=== PATIENT | female | born 1990 | race Caucasian/White ===

== ENCOUNTER → 2024-10-27 10:27 | Outpatient (REF) | payer BC, SELFPAY | LOC: PNTC 10:27 | PROVIDERS: ATTENDING PHYSICIAN Obstetrics & Gynecology | DX: O99.210 Obesity complicating pregnancy, unspecified trimester (principal); O09.529 Supervision of elderly multigravida, unspecified trimester; O34.219 Maternal care for unspecified type scar from previous cesarean delivery; Z87.59 Personal history of other complications of pregnancy, childbirth and the puerperium | CPT/HCPCS: 76801; 76813 ==

== ENCOUNTER → 2024-12-22 08:37 | Outpatient (REF) | payer BC, SELFPAY | LOC: PNTC 08:37 | PROVIDERS: ATTENDING PHYSICIAN Obstetrics & Gynecology | DX: O09.519 Supervision of elderly primigravida, unspecified trimester (principal); O09.529 Supervision of elderly multigravida, unspecified trimester; O14.90 Unspecified pre-eclampsia, unspecified trimester; O34.211 Maternal care for low transverse scar from previous cesarean delivery; O99.210 Obesity complicating pregnancy, unspecified trimester | CPT/HCPCS: 76811; 76817 ==

== ENCOUNTER → 2025-03-18 09:50 | Outpatient (REF) | payer BC, SELFPAY | LOC: PNTC 09:50 | PROVIDERS: ATTENDING PHYSICIAN Student in an Organized Health Care Education/Training Program | DX: O14.00 Mild to moderate pre-eclampsia, unspecified trimester (principal) | CPT/HCPCS: 59025; 76818 ==

== ENCOUNTER → 2025-03-25 13:57 | Outpatient (REF) | payer BC, SELFPAY | LOC: PNTC 13:57 | PROVIDERS: ATTENDING PHYSICIAN Student in an Organized Health Care Education/Training Program | DX: O13.9 Gestational [pregnancy-induced] hypertension without significant proteinuria, unspecified trimester (principal) | CPT/HCPCS: 59025; 76815 ==

== ENCOUNTER → 2025-04-01 09:21 | Outpatient (REF) | payer BC, SELFPAY | LOC: PNTC 09:21 | PROVIDERS: ATTENDING PHYSICIAN Student in an Organized Health Care Education/Training Program | DX: O16.9 Unspecified maternal hypertension, unspecified trimester (principal) | CPT/HCPCS: 59025; 76815 ==

== ENCOUNTER → 2025-04-08 09:32 | Outpatient (REF) | payer BC, SELFPAY | LOC: PNTC 09:32 | PROVIDERS: ATTENDING PHYSICIAN Student in an Organized Health Care Education/Training Program | DX: Z01.810 Encounter for preprocedural cardiovascular examination (principal) | CPT/HCPCS: 59025; 76815 ==

== ENCOUNTER 2025-04-15 10:51 | Observation (INO) | payer BC, SELFPAY ==
[2025-04-15] MEDS: TYLENOL 1000 MG PO (11:02)
[2025-04-15 11:40] LABS: AST (SGOT) 27 U/L (14-36); Albumin 3.6 g/dl (3.5-5.0); Alkaline Phosphatase 143 U/L (38-126); Blood Urea Nitrogen 8 mg/dl (7-17); Calcium 9.4 mg/dl (8.4-10.2); Carbon Dioxide 18 mmol/L (22-30); Chloride 108 mmol/L (98-107); Glucose 172 mg/dl (70-99); Potassium 4.2 mmol/L (3.5-5.1); Sodium 134 mmol/L (135-145); Total Protein 6.5 g/dl (6.3-8.2); eGFR > 60.00
[2025-04-15 11:42] LABS: Urine Character Clear (Clear)
[2025-04-15 11:43] LABS: Hematocrit 33.0 % (37.0-47.0); Hemoglobin 10.3 g/dL (12.0-16.0); Mean Corp Hgb Conc. 31.2 g/dL (33.0-37.0); Mean Corpuscular Volume 63.8 fL (81.0-99.0); Red Cell Dist. Width 16.4 % (11.5-14.5)
[2025-04-15 11:52] LABS: ALT (SGPT) < 30 U/L (0-35)
[2025-04-15 11:53] LABS: Urine Squamous Cell >30 /LPF (Few); Urine Urothelial Cell 0-2 /LPF (FEW)
[2025-04-15 12:05] VITALS: BP 148/84; BMI 34.6
[2025-04-15 13:04] VITALS: BP 147/83; BMI 34.6
[2025-04-15 15:29] LABS: Hematocrit 33.1 % (37.0-47.0); Hemoglobin 10.4 g/dL (12.0-16.0); Mean Corp Hgb Conc. 31.4 g/dL (33.0-37.0); Mean Corpuscular Volume 63.7 fL (81.0-99.0); Nucleated Red Blood Cells % 0.3 %; Platelet Count 293 10^3/uL (130-400); Red Cell Dist. Width 16.6 % (11.5-14.5)
[2025-04-15] MEDS: AMOXIL 500 MG PO (18:05)
[2025-04-15] MEDS: TUMS CHEWABLE TABLET 400 MG PO (21:40)
[2025-04-16] MEDS: AMOXIL 500 MG PO (05:55)
[2025-04-16] MEDS: ZITHROMAX 250 MG PO (05:55)
[2025-04-16 06:30] LABS: Hematocrit 32.6 % (37.0-47.0); Hemoglobin 10.2 g/dL (12.0-16.0); Mean Corp Hgb Conc. 31.3 g/dL (33.0-37.0); Mean Corpuscular Volume 63.8 fL (81.0-99.0); Nucleated Red Blood Cells % 0.2 %; Platelet Count 271 10^3/uL (130-400); Red Cell Dist. Width 16.0 % (11.5-14.5)
[2025-04-16 06:48] LABS: ALT (SGPT) 18 U/L (0-35); AST (SGOT) 22 U/L (14-36)
[2025-04-16] MEDS: LOW STRENGTH ASPIRIN 81 MG PO (07:54)
[2025-04-16] MEDS: DELTASONE 40 MG PO (07:54)
== END 2025-04-16 12:10 | disposition home or self-care (01) ==
LOC: LDRP 10:51
PROVIDERS: ADMITTING PHYSICIAN Obstetrics & Gynecology; ATTENDING PHYSICIAN Student in an Organized Health Care Education/Training Program
DX: O14.03 Mild to moderate pre-eclampsia, third trimester (principal); Z3A.36 36 weeks gestation of pregnancy
CPT/HCPCS: 76816; 80053; 81003; 81015; 82570; 84156; 84450; 84460; 85025; 85027; 86850; 86900; 86901; 94640; G0378

== ENCOUNTER 2025-04-20 05:15 | Inpatient (IN) | payer BC, SELFPAY ==
[2025-04-20 05:28] VITALS: BP 140/81; BMI 34.6
[2025-04-20 06:07] LABS: Hematocrit 35.1 % (37.0-47.0); Hemoglobin 10.9 g/dL (12.0-16.0); Mean Corp Hgb Conc. 31.5 g/dL (33.0-37.0); Mean Corpuscular Volume 63.0 fL (81.0-99.0); Platelet Count 347 10^3/uL (130-400); Red Cell Dist. Width 16.1 % (11.5-14.5)
[2025-04-20 06:56] LABS: ALT (SGPT) 19 U/L (0-35); AST (SGOT) 20 U/L (14-36); Albumin 3.5 g/dl (3.5-5.0); Alkaline Phosphatase 137 U/L (38-126); Blood Urea Nitrogen 10 mg/dl (7-17); Calcium 9.5 mg/dl (8.4-10.2); Carbon Dioxide 21 mmol/L (22-30); Chloride 106 mmol/L (98-107); Estimated Creatinine Clearance > 125 ml/min; Glucose 79 mg/dl (70-99); Potassium 4.1 mmol/L (3.5-5.1); Sodium 133 mmol/L (135-145); Total Protein 6.4 g/dl (6.3-8.2); eGFR > 60.00
[2025-04-20] MEDS: TYLENOL 975 MG PO (06:56)
[2025-04-20] MEDS: ANCEF 10 IV (06:56)
[2025-04-20] MEDS: BICITRA 30 ML PO (06:56)
[2025-04-20] MEDS: ZOFRAN 4 MG IV (14:30)
[2025-04-20] MEDS: TORADOL 15 MG IV ×2 (15:06→20:52)
[2025-04-20] MEDS: AMOXIL 500 MG PO (19:36)
[2025-04-20] MEDS: COLACE 100 MG PO (19:36)
[2025-04-21] MEDS: TORADOL 15 MG IV ×2 (02:51→08:48)
[2025-04-21 04:49] LABS: Hematocrit 28.1 % (37.0-47.0); Hemoglobin 8.9 g/dL (12.0-16.0); Mean Corp Hgb Conc. 31.7 g/dL (33.0-37.0); Mean Corpuscular Volume 63.4 fL (81.0-99.0); Platelet Count 268 10^3/uL (130-400); Red Cell Dist. Width 15.5 % (11.5-14.5)
[2025-04-21] MEDS: PRENATAL PLUS 1 TABLET PO (08:14)
[2025-04-21] MEDS: AMOXIL 500 MG PO ×2 (08:14→19:54)
[2025-04-21] MEDS: COLACE 100 MG PO ×2 (08:14→19:54)
[2025-04-21 12:56] LABS: Syphilis/T. pallidum Ab Reflex Negative (Negative)
--- NOTE | 2025-04-21 13:47 | W.PN.ANS.POP ---
Anesthesia Post Operative
- Anesthesia Post Op Note
Vital Signs Stable-See Nursing Note: Yes
Airway Patent: Yes
Adequate Pain Control: Yes
Change in Mental Status: No
Current Postoperative Nausea & Vomiting: No
Anesthesia Complications: No
General Anesthetic Recall: No
Unplanned Admission: No
Post Op Hydration Adequate: Yes
- -
At the time of post op assessment, patient was comfortable, eating and drinking. But patient reported being nauseous and vomiting for 12+ hours after c/s.
[2025-04-21] MEDS: MOTRIN 600 MG PO ×2 (15:02→21:38)
[2025-04-21] MEDS: TYLENOL 650 MG PO ×2 (15:03→21:38)
[2025-04-22] MEDS: MOTRIN 600 MG PO ×2 (04:49→11:33)
[2025-04-22] MEDS: TYLENOL 650 MG PO ×2 (04:50→11:33)
[2025-04-22] MEDS: AMOXIL 500 MG PO (08:32)
[2025-04-22] MEDS: COLACE 100 MG PO (08:32)
[2025-04-22] MEDS: PRENATAL PLUS 1 TABLET PO (08:33)
--- NOTE | 2025-04-27 05:29 | W.DS.TRANS ---
DC Summary - [employer]
-
Discharge Instructions:
Discharge Diagnosis/Procedures repeat section, preeclampsia without
severe features
Diet No restrictions
Activity No strenuous activity
Driving Restrictions No driving for 2 weeks
Bathing Restrictions OK to Shower
Instructions:
Stand-Alone Forms: LDRP Delivery
LDRP Hypertensive Disorders
Changes to Home Medications: No
Discharge Medications:
DC Medications w/original date entered in [employer]
amoxicillin 500 mg tablet 500 mg PO BID Infection 04/15/25
prenat.vits,nesha,koc-kycs-bfmyt 1 tab PO DAILY Supplement 04/20/25
acetaminophen 325 mg tablet 650 mg (2 x 325 mg) PO Q4HPRN PRN mild pain #1 tab 04/22/25
ferrous sulfate 325 mg (65 mg iron) tablet (FeroSul) 325 mg PO DAILY #1 tab 04/22/25
ibuprofen 600 mg tablet 600 mg PO Q6HPRN PRN cramps #60 tabs 04/22/25
Home Medication Changes
Pending Results: No
--- NOTE | 2025-04-27 05:29 | W.DCSUMMARY ---
Discharge Summary
Discharge Data
Date of Admission: 04/20/25
Date of Discharge: 04/22/25
-
Pending Results: No
Hospital Course
Patient is a 34yo who presented on 04/20 for scheduled repeat section at 37.2 for preeclamspia without severe features. She has a history of one prior section. She underwent repeat low transverse section on 04/20,
delivering a viable male infant. The procedure was uncomplicated. The estimated blood loss was 225mL. On postop day one, she was doing well with no complaints. Her hemoglobin was 8.9. She was asymptomatic for anemia and was started on iron. On
postop day two, she was complaining of left calf pain in the morning that later resolved. A lower extremity doppler was done and was negative for DVT. She was otherwise meeting all postop milestones. She was tolerating a regular diet, voiding
spontaneously, passing flatus and had no heavy lochia. She had no signs or symptoms of severe features of preeclampsia. Her blood pressures were controlled on no medications. She requested discharge home and was stable. Discharge instructions and
return precautions were reviewed with the patient prior to discharge. She was counseled on preeclampsia precautions. She was instructed to follow up in one week for a BP check.
Discharge Plan
-
Patient Disposition: Home (Routine Discharge)
Discharge Diagnosis/Procedures: repeat section, preeclampsia without severe features
Condition: Good
Diet: No restrictions
Activity: No strenuous activity
Driving Restrictions: No driving for 2 weeks
Bathing Restrictions: OK to Shower
Activity Restrictions/Additional Instructions:
Call the office if your BP is >160/110, you have a headache not relieved by medication, changes in your vision, chest pain, shortness of breath or pain in your upper abdomen.
Stand Alone Forms: LDRP Delivery, LDRP Hypertensive Disorders
Referrals:
Marielos Leon DO [Family Provider, Family Practice]
Leyda Finney MD [Active, Gynecology] - in one week
Prescriptions:
New
ferrous sulfate [FeroSul] 325 mg (65 mg iron) Tablet
325 mg PO DAILY Qty: 1 0RF
acetaminophen 325 mg Tablet
650 mg PO Q4HPRN PRN (Reason: mild pain) Qty: 1 0RF
ibuprofen 600 mg Tablet
600 mg PO Q6HPRN PRN (Reason: cramps) Qty: 60 0RF
Continued
prenat.vits,nesha,gbx-xcoc-ltjvr Tablet
1 tab PO DAILY
amoxicillin 500 mg Tablet
500 mg PO BID
Discontinued
aspirin 81 mg Tablet
81 mg PO DAILY
Discharge Orders:
Discharge Patient (As Directed); Ordered 04/22/25
Ordered By: Meghann Jeter
Discharge Date and Time
Discharge Date/Time: 04/22/25 16:14
Print Language: HEBREW
== END 2025-04-22 16:14 | disposition home or self-care (01) | DRG 788 ==
LOC: LDRP 05:15
PROVIDERS: Obstetrics & Gynecology; ADMITTING PHYSICIAN Obstetrics & Gynecology; FAMILY PHYSICIAN Family Medicine
PROC: 10D00Z1 Extraction of Products of Conception, Low, Open Approach (ICD-10-PCS; 2025-04-20)
DX: O14.04 Mild to moderate pre-eclampsia, complicating childbirth (principal); O34.211 Maternal care for low transverse scar from previous cesarean delivery; O99.214 Obesity complicating childbirth; O90.89 Other complications of the puerperium, not elsewhere classified; M79.662 Pain in left lower leg; O90.81 Anemia of the puerperium; D50.0 Iron deficiency anemia secondary to blood loss (chronic); O69.82X0 Labor and delivery complicated by other cord entanglement, without compression, not applicable or unspecified; Z37.0 Single live birth; Z3A.37 37 weeks gestation of pregnancy; Z87.59 Personal history of other complications of pregnancy, childbirth and the puerperium
CPT/HCPCS: 80053; 85027; 86780; 86850; 86900; 86901; 87070; 88307; 93971